=== PATIENT | female | born 1980 | race Two or more races ===

== ENCOUNTER 2023-05-31 08:15 | Inpatient (IN) | payer OTHER ==
[~2023-05-31] VITALS: Ht 162.6 cm; Wt 77.1 kg
[2023-05-31 09:14] LABS: HEMATOCRIT 37.4 % (36.0-45.00); HEMOGLOBIN 12.5 g/dL (12.0-15.00); MEAN CELL VOLUME 84.8 fL (80.00-100.00); MEAN CORPUSCULAR HEMOGLOBIN 28.4 pg (27.00-32.0); MEAN CORPUSCULAR HGB CONC 33.5 g/dl (32.0-36.0); PLATELET COUNT 247 K/uL (150-450); RED BLOOD COUNT 4.42 M/uL (4.00-6.00); RED CELL DISTRIBUTION WIDTH 14.1 % (11.5-14.5)
[2023-05-31 09:29] LABS: PH,URINE 6.5 (5.0-8.0); URINE APPEARANCE Clear; URINE BILIRRUBIN Negative (NEGATIVE); URINE BLOOD Small; URINE COLOR Yellow; URINE GLUCOSE Negative (NEGATIVE); URINE LEUKOCYTE Negative; URINE NITRATE Negative; URINE PROTEIN Negative (NEGATIVE); URINE UROBILINOGEN 0.2 E.U./dl
[2023-05-31 09:33] LABS: URINE BACTERIA 1113.5 uL (0.0-1933); URINE EPITHELIAL CELLS 42.3 uL (0.0-38.8); URINE RBC 13.6 uL (0.0-20.8); URINE WBC 4.6 uL (0.0-23.2)
[2023-05-31 09:53] LABS: INR 1.04; PARTIAL THROMBOPLASTIN TIME 33.2 SECONDS (22.0-34.0); PROTHROMBIN TIME 10.9 SECONDS (9.0-11.5)
[2023-05-31 10:03] LABS: ALBUMIN 3.7 gm/dL (3.4-5.0); BILIRUBIN TOTAL 0.95 mg/dL (0.3-1.2); CALCIUM 9.1 mg/dL (8.5-10.1); CREATININE SERUM 0.59 mg/dL (0.55-1.02); GFR 112.32; GLOBULINA 3.4 G/DL (2.4-3.5); POTASSIUM 4.38 mEq/L (3.5-5.1); TOTAL PROTEIN 7.1 gm/dL (6.4-8.2); TSH 2.69 uIU/mL (0.358-3.74)
[2023-06-03] MEDS ORDERED: LIDOCAINE HCL/EPINEPHRINE 10MG/ML 1% 50ML IJ ONE (07:28)
[2023-06-03] MEDS ORDERED: POVIDONE-IODINE 118 ML BOTT TOP ONE (07:28)
[2023-06-03] MEDS ORDERED: BUPIVACAINE HCL/PF 0.5% 30ML ML ONE (07:28)
[2023-06-03] MEDS ORDERED: CHLORHEXIDINE GLUCONATE 120 ML BOTTLE TOP ONE ×2 (07:28→09:15)
[2023-06-03] MEDS ORDERED: CEFAZOLIN SODIUM 1,000 MG VIAL ONE (09:27)
[2023-06-03] MEDS ORDERED: CEFAZOLIN SODIUM 1,000 MG VIAL IV ONE (09:45)
[2023-06-03] MEDS ORDERED: SUGAMMADEX SODIUM 200 MG/2 ML VIAL IV ONE ×2 (09:46→10:00)
[2023-06-03] MEDS ORDERED: RINGERS SOLUTION,LACTATED 1,000 ML IV SCH (10:00)
[2023-06-03] MEDS ORDERED: OxyCODONE HCL/APAP UD (PERCOCET) PO PRN (10:00)
[2023-06-03] MEDS ORDERED: MORPHINE SULFATE 4 MG/ML VIAL IV ONE (10:00)
[2023-06-03] MEDS ORDERED: KETOROLAC TROMETHAMINE 15 MG VIAL IV ONE (10:15)
[2023-06-03] MEDS ORDERED: KETOROLAC TROMETHAMINE 30 MG VIAL ONE (11:37)
[2023-06-03] MEDS ORDERED: DOCUSATE SODIUM 100MG CAP PO SCH (17:00)
[2023-06-03] MEDS ORDERED: IBUprofen 800 MG TABLET PO SCH (17:00)
[2023-06-03] MEDS ORDERED: ONDANSETRON HCL 2 MG/ML VIAL IV SCH (21:00)
[2023-06-04 07:50] LABS: HEMATOCRIT 33.5 % (36.0-45.00); HEMOGLOBIN 11.3 g/dL (12.0-15.00); MEAN CELL VOLUME 86.1 fL (80.00-100.00); MEAN CORPUSCULAR HGB CONC 33.7 g/dl (32.0-36.0); PLATELET COUNT 250 K/uL (150-450); RED BLOOD COUNT 3.89 M/uL (4.00-6.00); RED CELL DISTRIBUTION WIDTH 13.9 % (11.5-14.5)
[2023-06-04 08:09] LABS: ALBUMIN 3.2 gm/dL (3.4-5.0); BILIRUBIN TOTAL 1.32 mg/dL (0.3-1.2); CALCIUM 8.7 mg/dL (8.5-10.1); CREATININE SERUM 0.52 mg/dL (0.55-1.02); GFR 129.95; GLOBULINA 2.9 G/DL (2.4-3.5); POTASSIUM 3.85 mEq/L (3.5-5.1); TOTAL PROTEIN 6.1 gm/dL (6.4-8.2)
[2023-06-04] MEDS ORDERED: COLACE100 MG PO (08:42)
[2023-06-04] MEDS ORDERED: IBUPROFEN800 MG PO (08:42)
[2023-06-04] MEDS ORDERED: OXYC1TAB9 PO (08:42)
== END 2023-06-04 11:30 | disposition home or self-care (01) | DRG 743 ==
LOC: OB/GYN 06-03 05:40 → O/R 06-03 05:40 → SURG 06-03 08:15 → OB/GYN 06-03 10:40 → SURG 06-03 10:45 → OB/GYN 06-04 11:30
PROVIDERS: ADMIT Student in an Organized Health Care Education/Training Program; ATTEND Student in an Organized Health Care Education/Training Program
PROC: 0UT10ZZ Resection of Left Ovary, Open Approach (ICD-10-PCS; 2023-06-03)
PROC: 0UT60ZZ Resection of Left Fallopian Tube, Open Approach (ICD-10-PCS; 2023-06-03)
PROC: 3E1M38X Irrigation of Peritoneal Cavity using Irrigating Substance, Percutaneous Approach, Diagnostic (ICD-10-PCS; 2023-06-03)
PROC: 0UJD4ZZ Inspection of Uterus and Cervix, Percutaneous Endoscopic Approach (ICD-10-PCS; principal; 2023-06-03 10:45)
DX: N83.292 Other ovarian cyst, left side (principal); Z20.822 Contact with and (suspected) exposure to COVID-19; Z53.31 Laparoscopic surgical procedure converted to open procedure